=== PATIENT | female | born 1970 | race Caucasian/White ===

== ENCOUNTER 2018-10-22 16:30 | Outpatient (RCR) | payer MEDICAID, OTHER, SELFPAY | END 2018-10-25 | LOC: M PT 16:30 | PROVIDERS: ATTEND Orthopaedic Surgery | DX: M25.512 Pain in left shoulder (principal) ==

== ENCOUNTER → 2018-11-24 | Outpatient (RCR) | payer OTHER | LOC: M PT 10-29 16:19 | PROVIDERS: ATTEND Orthopaedic Surgery | DX: M25.512 Pain in left shoulder (principal) ==

== ENCOUNTER 2018-11-26 16:28 | Outpatient (RCR) | payer OTHER | END 2018-11-30 10:33 | disposition home or self-care (01) | LOC: M PT 16:28 | PROVIDERS: ATTEND Orthopaedic Surgery | DX: M25.512 Pain in left shoulder (principal) ==

== ENCOUNTER 2018-12-23 16:15 | Outpatient (RCR) | payer OTHER | END 2018-12-25 | LOC: M PT 16:15 | PROVIDERS: ATTEND Family Medicine | DX: M25.561 Pain in right knee (principal) ==

== ENCOUNTER 2019-01-21 16:30 | Outpatient (RCR) | payer OTHER | END 2019-01-24 | disposition home or self-care (01) | LOC: M PT 16:30 | PROVIDERS: ATTEND Family Medicine | DX: M25.561 Pain in right knee (principal) ==

== ENCOUNTER 2019-04-13 16:54 | Emergency (ER) | payer OTHER ==
[~2019-04-13] VITALS: Ht 162.6 cm; Wt 86.4 kg
[2019-04-13] MEDS ORDERED: predniSONE 20 MG TAB PO ONE (18:00)
[2019-04-13] MEDS ORDERED: GABAPENTIN 300 MG CAP PO ONE (18:00)
[2019-04-13] MEDS ORDERED: GABA-843 PO (18:05)
[2019-04-13] MEDS ORDERED: PRED10TA2 PO (18:05)
[2019-04-13 18:06] VITALS: BP 170/74
[2019-04-13] MEDS ORDERED: DULO1CAP5 (18:08)
[2019-04-13] MEDS ORDERED: ATOR1TAB19 (18:08)
[2019-04-13] MEDS ORDERED: FAMO1TAB11 (18:08)
[2019-04-13] MEDS ORDERED: GABA-1171 (18:08)
[2019-04-13] MEDS ORDERED: LISI-542 (18:08)
== END 2019-04-13 18:48 | disposition home or self-care (01) ==
LOC: M ED 16:54
DX: M54.10 Radiculopathy, site unspecified (principal); M25.511 Pain in right shoulder; I10 Essential (primary) hypertension; E11.9 Type 2 diabetes mellitus without complications; J45.909 Unspecified asthma, uncomplicated; Z79.899 Other long term (current) drug therapy

== ENCOUNTER → 2019-07-01 | Outpatient (CLI) | payer OTHER ==
[~2019-07-01] MED LIST: ATOR1TAB19; DULO1CAP5; FAMO1TAB11; GABA-1171; GABA-843 PO; LISI-542; PRED10TA2 PO; PROHANCE 279.3MG/ML 15ML VIAL (A9576) As Ordered ONE; PROHANCE 279.3MG/ML 5ML VIAL (A9576) As Ordered ONE
--- NOTE | 2019-07-01 14:26 | REP ---
MRI PELVIS WITH AND WITHOUT CONTRAST: TECHNIQUE: Multiple sequences obtained in the axial, coronal and sagittal planes prior to and following the intravenous administration of 17 mL ProHance. The osseous structures of the pelvic demonstrate normal bone marrow signal. There is no bone marrow edema or occult fracture. There is no abnormal bone marrow enhancement. No subchondral edema or enhancement is seen at either hip joint or the sacroiliac joints. There is mild ill-defined high signal along the greater trochanters of the proximal femurs bilaterally compatible with very mild bilateral greater trochanteric tendinobursitis. There is no avascular necrosis of either hip. Normal amount of joint fluid is seen at the hips. Other surrounding soft tissue structures are unremarkable. Within the pelvis, the ovaries are visualized and are normal. The patient appears to have had a hysterectomy. There is no evidence of pelvic mass. No free fluid is seen. IMPRESSION: Findings compatible with mild bilateral greater trochanteric tendinobursitis. Osseous structures of the pelvis appear unremarkable as discussed above. No pelvic mass is seen. Electronically Signed by Juvencio Garcia MD 07/01/2019 04:48 P
== END ==
LOC: M RAD 09:41
PROVIDERS: ATTEND Internal Medicine Rheumatology
DX: M54.89 Other dorsalgia (principal); M47.891 Other spondylosis, occipito-atlanto-axial region
CPT/HCPCS: 72197; A9576

== ENCOUNTER → 2022-04-17 | Outpatient (REF) | payer OTHER ==
[~2022-04-17] MED LIST changes: +GABA-282 PO; -GABA-843 PO; -LISI-542; +LISI5TAB11; -PROHANCE 279.3MG/ML 15ML VIAL (A9576) As Ordered ONE; -PROHANCE 279.3MG/ML 5ML VIAL (A9576) As Ordered ONE
== END ==
LOC: M LAB REF 12:14
PROVIDERS: ATTEND Nurse Practitioner Adult Health
DX: E11.65 Type 2 diabetes mellitus with hyperglycemia (principal)

== ENCOUNTER → 2023-03-20 | Outpatient (CLI) | payer OTHER | LOC: M RAD 08:46 | PROVIDERS: ATTEND Nurse Practitioner Adult Health | DX: R09.89 Other specified symptoms and signs involving the circulatory and respiratory systems (principal) ==

== ENCOUNTER → 2024-01-02 | Outpatient (CLI) | payer BC | LOC: M WHC 08:10 | PROVIDERS: ATTEND Internal Medicine | DX: Z12.31 Encounter for screening mammogram for malignant neoplasm of breast (principal) ==

== ENCOUNTER → 2024-01-16 | Outpatient (CLI) | payer BC, OTHER | LOC: M RAD 09:15 | PROVIDERS: ATTEND Internal Medicine | DX: D17.22 Benign lipomatous neoplasm of skin and subcutaneous tissue of left arm (principal) ==

== ENCOUNTER 2024-03-23 06:26 | Day surgery (SDC) | payer BC ==
[~2024-03-23] VITALS: Ht 162.6 cm; Wt 61.3 kg
[~2024-03-23 06:26] MED LIST changes: +ASCO500C3 PO; +ATOR80TA59 PO; +BIOT1000 PO; -DULO1CAP5; +DULO1CAP5 PO; +K2 P1TAB PO; +LISI40TA4 PO; +RIZA10TA66 PO; +SEMA1PEN2 SC; +VITA500T40 PO
[2024-03-23] MEDS ORDERED: LIDOCAINE 1% SDV 5ML VIAL SC PRN (06:50)
[2024-03-23] MEDS ORDERED: MIDAZOLAM INJ 2MG/2ML VIAL As Ordered ONE (07:03)
[2024-03-23] MEDS ORDERED: fentaNYL 100 MCG/2 ML INJECTION As Ordered ONE (07:04)
[2024-03-23] MEDS ORDERED: LIDOCAINE 2% 100MG/5ML SDV (FOR ANES.) As Ordered ONE (07:04)
[2024-03-23] MEDS: LR 1,000 ML IV SCH (07:31)
[2024-03-23] MEDS ORDERED: propofoL 500 MG/50 ML VIAL As Ordered ONE (07:35)
[2024-03-23] MEDS: ceFAZolin SOD 2 GM in IV 1 EA IV ONE (07:50)
[2024-03-23] MEDS ORDERED: ONDANSETRON 4MG 2ML VIAL As Ordered ONE (08:03)
[2024-03-23] MEDS ORDERED: KETOROLAC 60MG 2ML VIAL As Ordered ONE (08:03)
[2024-03-23 09:10] VITALS: BP 134/61; TEMP 96.9; O2SAT 100
== END 2024-03-23 09:19 | disposition home or self-care (01) ==
LOC: M SDC 06:26
PROVIDERS: ATTEND Surgery
DX: D17.22 Benign lipomatous neoplasm of skin and subcutaneous tissue of left arm (principal); I10 Essential (primary) hypertension; E11.9 Type 2 diabetes mellitus without complications; F41.9 Anxiety disorder, unspecified; F32.A Depression, unspecified; J45.909 Unspecified asthma, uncomplicated; Z79.899 Other long term (current) drug therapy; Z91.030 Bee allergy status; Z88.8 Allergy status to other drugs, medicaments and biological substances
CPT/HCPCS: 11400; 88304; C9290; J0665; J0690; J1100; J1885; J2250; J2405; J3010

== ENCOUNTER → 2024-08-03 | Outpatient (REF) | payer BC ==
[~2024-08-03] MED LIST changes: +GABA-1172 PO; -GABA-282 PO
[2024-08-03 19:47] LABS: C REACTIVE PROTEIN QUANTITATIV < 0.50 MG/DL (<1.0)
[2024-08-03 19:50] LABS: VITAMIN B12 LEVEL 1465 PG/ML (211-911)
[2024-08-03 19:51] LABS: RHEUMATOID FACTOR QUANT 3.8 IU/ML (<14)
[2024-08-03 19:55] LABS: FOLATE 22.1 NG/ML (>5.4)
== END ==
LOC: M LAB REF 16:42
PROVIDERS: ATTEND Internal Medicine
DX: M15.9 Polyosteoarthritis, unspecified (principal); R20.0 Anesthesia of skin

== ENCOUNTER 2024-09-21 08:04 | Emergency (ER) | payer BC, OTHER ==
[~2024-09-21] VITALS: Ht 162.6 cm; Wt 64.4 kg
[2024-09-21] MEDS ORDERED: DULO1CAP6 (09:59)
[2024-09-21] MEDS: ONDANSETRON 4MG ORAL DISINTEGRATING TAB PO ONE (11:12)
[2024-09-21] MEDS: MECLIZINE 25 MG TABLET PO ONE (11:12)
[2024-09-21 15:00] VITALS: BP 154/91; TEMP 96.5; O2SAT 99
[2024-09-21] MEDS ORDERED: MECL-209 PO (15:09)
[2024-09-21] MEDS ORDERED: ONDA-282 PO (15:09)
== END 2024-09-21 15:24 | disposition home or self-care (01) ==
LOC: M ED 08:04
DX: H93.13 Tinnitus, bilateral (principal); H81.399 Other peripheral vertigo, unspecified ear; I10 Essential (primary) hypertension; J45.909 Unspecified asthma, uncomplicated; E11.9 Type 2 diabetes mellitus without complications; F41.9 Anxiety disorder, unspecified; M35.9 Systemic involvement of connective tissue, unspecified; Z79.02 Long term (current) use of antithrombotics/antiplatelets; Z79.83 Long term (current) use of bisphosphonates; Z79.899 Other long term (current) drug therapy

== ENCOUNTER → 2025-02-01 | Outpatient (CLI) | payer OTHER ==
[~2025-02-01] MED LIST changes: -BIOT1000 PO; +BIOT10002 PO; +DULO1CAP6; +LISI40TA10 PO; -LISI40TA4 PO; +MECL-209 PO; +ONDA-282 PO
== END ==
LOC: M WHC 16:12
PROVIDERS: ATTEND Internal Medicine
DX: Z12.31 Encounter for screening mammogram for malignant neoplasm of breast (principal)

== ENCOUNTER → 2025-02-23 | Outpatient (CLI) | payer OTHER | LOC: M LAB 10:46 | PROVIDERS: ATTEND Internal Medicine Rheumatology | DX: M19.90 Unspecified osteoarthritis, unspecified site (principal) ==